=== PATIENT | female | born 1945 | race Caucasian/White ===

== ENCOUNTER 2022-07-04 10:34 | Observation (INO) ==
[2022-07-04] MEDS ORDERED: Al Hydrox/Mg Hydrox/Simet LIQ 30 ML UDC PO ONE (11:35)
[2022-07-04] MEDS ORDERED: Famotidine IV 10 MG/ML 2 ml VIAL (20 mg) IV SLOW PU ONE (11:35)
[2022-07-04] MEDS ORDERED: Albuterol HFA INHALER 8 gm MDI INH ONE (11:36)
[2022-07-04] MEDS ORDERED: methylPREDNISolone SOD SUCC 125 mg 2 ML VIAL IV ONE (11:36)
[2022-07-04 12:30] LABS: Hematocrit 45 % (35-47); Hemoglobin 15.1 g/dL (12.0-16.0); Mean Corpuscular HGB Conc 33 g/dL (31-36); Mean Corpuscular Hemoglobin 30 pg (27-31); Mean Corpuscular Volume 88 fL (80-97); Red Cell Distribution Width 15 % (10-15)
[2022-07-04 12:43] LABS: Activated Partial Thrombo Time 37.8 seconds (26.0-38.0)
[2022-07-04 13:05] LABS: Albumin 3.9 g/dL (3.2-5.2); Albumin/Globulin Ratio 1.6 (1-3); C Reactive Protein 90.01 mg/L (<8.01); Calcium 9.6 mg/dL (8.6-10.3); Globulin 2.4 g/dL (2-4); Potassium 4.1 mmol/L (3.5-5.0); Total Bilirubin 0.6 mg/dL (0.2-1.0); Total Protein 6.3 g/dL (6.4-8.9); eGFR CKD-EPI 42.7 (>60)
[2022-07-04] MEDS ORDERED: Lactated Ringers 1000 ml BAG 1,000 ML IV ONE (13:19)
[2022-07-04 13:38] LABS: ABS Lymphocytes 0.4 10^3/ul (1.0-4.8); ABS Monocytes 0.3 10^3/ul (0-0.8); ABS Neutrophils 2.3 10^3/ul (1.5-7.7); Eosinophil % 0.1 %; Lymphocyte % 13.1 %; Mean Platelet Volume 9.9 fL (7.4-10.4); Platelet Count 37 10^3/uL (150-450); RBC Morphology Normal (Normal)
[2022-07-04] MEDS ORDERED: cefTRIAXone 1 gm/50 mL D5W 1 GM/50 ML BAG IV ONE (13:54)
[2022-07-04 14:08] LABS: High Sensitivity Troponin 1 Hr 11 pg/mL (<15)
[2022-07-04 14:10] LABS: PCO2 Arterial 47 mmHg (35-45)
[2022-07-04 14:13] LABS: PO2 Arterial 53 mmHg (80-100)
[2022-07-04] MEDS ORDERED: Albuterol HFA INHALER 8 gm MDI INH PRN (15:53)
[2022-07-04] MEDS ORDERED: Metoclopramide 5 MG/ML VIAL (10 mg) IV PRN (15:56)
[2022-07-04] MEDS ORDERED: Enoxaparin 30 MG/0.3 ML SYR SUBCUT SCH (16:00)
[2022-07-04] MEDS ORDERED: Nicotine Lozenge mini 4 MG LOZNG.MINI MT PRN (17:13)
[2022-07-04] MEDS ORDERED: DOXYcycline IV 100 MG in NS 0.9% 250 ML IVPB ONE (20:00)
[2022-07-04 21:04] LABS: Venous Bicarbonate HCO3 28.1 mmol/L (24-28)
[2022-07-04] MEDS: DOXYcycline 100 MG in NS 0.9% 250 ml 250 ML IVPB SCH (21:36)
[2022-07-05 00:09] LABS: Urine Appearance Clear; Urine Bilirubin Negative (Negative); Urine Blood Trace (Intact) (Negative); Urine Color Yellow; Urine Glucose Negative (Negative); Urine Ketones Negative (Negative); Urine Specific Gravity 1.015 (1.005-1.030)
[2022-07-05 00:10] LABS: Urine Nitrite Negative (Negative); Urine Protein 1+ (30 mg/dL) (Negative); Urine Urobilinogen 0.2 (Negative) (Negative)
[2022-07-05 00:23] LABS: Urine Bacteria 1+ (Absent); Urine Red Blood Cell 1+(3-5/hpf) (Absent); Urine Squamous Epithelial Cell Present (Absent); Urine White Blood Cell Trace(0-5/hpf) (Absent)
[2022-07-05 05:53] LABS: Hematocrit 37 % (35-47); Hemoglobin 12.5 g/dL (12.0-16.0); Mean Corpuscular HGB Conc 34 g/dL (31-36); Mean Corpuscular Hemoglobin 30 pg (27-31); Mean Corpuscular Volume 88 fL (80-97); Mean Platelet Volume 9.8 fL (7.4-10.4); Platelet Count 39 10^3/uL (150-450); Red Blood Count 4.15 10^6 /uL (3.70-4.87); Red Cell Distribution Width 15 % (10-15); White Blood Count 3.6 10^3/uL (3.5-10.8)
[2022-07-05 05:56] LABS: Calcium 8.8 mg/dL (8.6-10.3); Potassium 4.3 mmol/L (3.5-5.0); eGFR CKD-EPI 68.6 (>60)
[2022-07-05] MEDS: Tiotropium Brom/Olodaterol MDI INH SCH (07:36)
[2022-07-05] MEDS: Nicotine PATCH 21 MG/24 HR PATCH TRANSDERM SCH (09:10)
[2022-07-05] MEDS: DOXYcycline 100 MG in NS 0.9% 250 ml 250 ML IVPB SCH ×2 (09:26→22:01)
[2022-07-05 09:47] LABS: RBC Morphology Normal (Normal)
[2022-07-05 09:48] LABS: ABS Lymphocytes 0.7 10^3/ul (1.0-4.8); ABS Monocytes 0.4 10^3/ul (0-0.8); ABS Neutrophils 2.4 10^3/ul (1.5-7.7); Lymphocyte % 20.5 %; Nucleated Red Blood Cells % 0.1
[2022-07-05] MEDS ORDERED: cefTRIAXone 1 gm/50 mL D5W 1 GM/50 ML BAG IV SCH (16:00)
[2022-07-06] MEDS: Calcium Carb (TUMS) 500 mg CHEW TAB PO PRN ×2 (01:38→08:15)
[2022-07-06 06:56] LABS: ABS Lymphocytes 2.2 10^3/ul (1.0-4.8); ABS Monocytes 0.6 10^3/ul (0-0.8); ABS Neutrophils 2.8 10^3/ul (1.5-7.7); Eosinophil % 0.1 %; Hematocrit 38 % (35-47); Hemoglobin 12.9 g/dL (12.0-16.0); Lymphocyte % 38.1 %; Mean Corpuscular HGB Conc 34 g/dL (31-36); Mean Corpuscular Hemoglobin 30 pg (27-31); Mean Corpuscular Volume 88 fL (80-97); Mean Platelet Volume 9.5 fL (7.4-10.4); Nucleated Red Blood Cells % 0.3; Platelet Count 63 10^3/uL (150-450); Red Blood Count 4.26 10^6 /uL (3.70-4.87); Red Cell Distribution Width 15 % (10-15); White Blood Count 5.6 10^3/uL (3.5-10.8)
[2022-07-06] MEDS: Nicotine PATCH 21 MG/24 HR PATCH TRANSDERM SCH (08:23)
[2022-07-06] MEDS: Tiotropium Brom/Olodaterol MDI INH SCH (09:23)
[2022-07-06] MEDS: DOXYcycline 100 MG in NS 0.9% 250 ml 250 ML IVPB SCH (09:59)
[2022-07-06 11:16] VITALS: BP 154/70
[2022-07-07 19:26] LABS: Anaplasma phagocytophilum Positive (Negative); B. miyamotoi PCR, B Negative (Negative); Babesia divergens/MO-1 Negative (Negative); Babesia ducani Negative (Negative); Ehrlichia chaffeensis Negative (Negative); Ehrlichia ewingii/canis Negative (Negative); Ehrlichia muris eauclairensis Negative (Negative)
== END 2022-07-06 15:57 | disposition home or self-care (01) ==
LOC: ED 10:34 → EDHOLD 10:34 → MEDTELE 20:19
PROVIDERS: ADMIT Internal Medicine; ATTEND Internal Medicine